=== PATIENT | female | born 1985 | race Caucasian/White ===

== ENCOUNTER 2020-06-21 03:50 | Inpatient (IN) | payer OTHER ==
[2020-06-21] MEDS ORDERED: Butorphanol 1 MG/ML SDV IVPUSH PRN (19:13)
[2020-06-21] MEDS ORDERED: Sodium Chloride 0.9% 2.5 ML Syringe FLUSH PRN (19:13)
[2020-06-21] MEDS ORDERED: Carboprost Tromethamine 250 MCG/1 ML Amp IM PRN (19:13)
[2020-06-21] MEDS ORDERED: Nalbuphine 10 MG/1 ML Vial IVPUSH PRN (19:13)
[2020-06-21] MEDS ORDERED: Water For Irrigation,Sterile 1,000 ML Container IRR PRN (19:13)
[2020-06-21] MEDS ORDERED: Methylergonovine 0.2 MG/1 ML Amp IM PRN (19:13)
[2020-06-21] MEDS ORDERED: Tranexamic Acid 1,000 MG in Sodium Chloride 0.9% 100 ML IV PRN (19:13)
[2020-06-21] MEDS ORDERED: ceFAZolin 2 GM in Premix Bag 1 BAG IV ONE (19:13)
[2020-06-21] MEDS ORDERED: Misoprostol 200 MCG Tab PO PRN (19:13)
[2020-06-21] MEDS ORDERED: Terbutaline 1 MG/ML SDV SUBCUT PRN (19:13)
[2020-06-21] MEDS ORDERED: Misoprostol 25 MCG (1/4 of 100 MCG) Tab VAG PRN ×2 (19:13)
[2020-06-21] MEDS ORDERED: Lidocaine 1% 50 ML MDV INJECT PRN (19:13)
[2020-06-21] MEDS ORDERED: Sodium Chloride 0.9% 10 ML SDV IV PRN (19:13)
[2020-06-21] MEDS ORDERED: Sodium Chloride 0.9% 10 ML Syringe FLUSH PRN (19:13)
[2020-06-21] MEDS ORDERED: Lactated Ringers 1,000 ML IV SCH (19:15)
[2020-06-21] MEDS ORDERED: Oxytocin/0.9 % Sodium Chloride 30 UNIT/500 ML BAG IV SCH ×2 (19:15)
[2020-06-22] MEDS ORDERED: Ropivacaine HCl/PF 100 ML ONE (03:30)
[2020-06-22] MEDS ORDERED: fentaNYL 100 MCG/2 ML SDV ONE ×2 (03:30→03:58)
[2020-06-22] MEDS ORDERED: ceFAZolin 1 GM in Premix Bag 1 BAG IV SCH (03:30)
[2020-06-22] MEDS ORDERED: Lidocaine 2% with EPINEPHrine 1:200,000 20 ML SDV ONE (03:52)
[2020-06-22] MEDS ORDERED: Morphine 4 MG/ML Syringe ONE (04:18)
--- NOTE | 2020-06-22 04:20 | PCM.PREANE ---
Preanesthetic Assessment - Anesthesia/Transfusion/Family Hx Anesthesia History: Prior Anesthesia Without Reaction Family History of Anesthesia Reaction: No - Physical Assessment NPO Status Date: 06/22/20 NPO Status Time: 00:05 Height: 1.68 m Weight: 117.48 kg ASA Class: 2 - Lab Values: Laboratory Last Values WBC 14.54 K/uL (4.0-11.0) H 06/21/20 19:25 RBC 4.34 M/uL (4.30-5.90) 06/21/20 19:25 Hgb 12.2 g/dL (12.0-16.0) 06/21/20 19:25 Hct 36.8 % (36.0-46.0) 06/21/20: MCV 84.8 fL (80.0-98.0) 06/21/20 19: MCH 28.1 pg (27.0-32.0) 06/21/20 19: MCHC 33.2 g/dL (31.0-37.0) 06/21/20 19:25 RDW Std Deviation 45.0 fl (28.0-62.0) 06/21/20 19:25 RDW Coeff of Juani 14 % (11.0-15.0) 06/21/20 19:25 Plt Count 325 K/uL (150-400) 06/21/20 19:25 MPV 10.50 fL (7.40-12.00) 06/21/20 19:25 Nucleated RBC % 0.0 /100WBC 06/21/20 19:25 Nucleated RBCs # 0 K/uL 06/21/20 19:25 Blood Type A POSITIVE 06/21/20 19:25 Antibody Screen NEGATIVE 06/21/20 19:25 - Allergies Allergies/Adverse Reactions: Allergies Allergy/AdvReac Type Severity Reaction Status Date / Time amoxicillin Allergy Rash Verified 11/20/14 08:15 nickel Allergy Redness Verified 06/02/16 08:23 [place] [employer] Allergy Anaphylactic Uncoded 11/20/14 08:16 Shock - Acknowledgements Anesthesia Type Planned: Epidural Pt an Appropriate Candidate for the Planned Anesthesia: Yes Alternatives and Risks of Anesthesia Discussed w Pt/Guardian: Yes Pt/Guardian Understands and Agrees with Anesthesia Plan: Yes PreAnesthesia Questionnaire - Past Health History Medical/Surgical History: Denies Medical/Surgical History HEENT History: Reports: Other (See Below) Other HEENT History: glasses and contacts [employer] INS[employer]OR History: Reports: Psychiatric History: Reports: ADD - Infectious Disease History Infectious Disease History: Reports: Chicken Pox - HOME MEDS Home Medications: Home Meds Cetirizine [ZyrTEC] 10 mg PO ASDIRECTED 06/02/16 [History] Vit Calc,Iron,Folic [ Vitamins] 1 each PO 06/02/16 [History] - CURRENT (IN HOUSE) MEDS Current Meds: Current Medications Butorphanol Tartrate (Stadol) 1 mg IVPUSH Q1H PRN PRN Reason: Pain Last Admin: 06/22/20 01:30 Dose: 1 mg Documented by: Carboprost Tromethamine (Hemabate Ds) 250 mcg IM ASDIRECTED PRN PRN Reason: Post Hemorrhage Oxytocin/Sodium Chloride (Oxytocin 30 Unit/500 Ml-Ns) 30 unit in 500 mls @ 999 mls/hr IV TITRATE MARK Last Admin: 06/22/20 03:58 Dose: 999 mls/hr Documented by: Tranexamic Acid 1,000 mg/ (Sodium Chloride) 110 mls @ 660 mls/hr IV ONETIME PRN PRN Reason: Bleeding Oxytocin/Sodium Chloride (Oxytocin 30 Unit/500 Ml-Ns) 30 unit in 500 mls @ 2 mls/hr IV TITRATE MARK; Protocol Lactated Ringer's (Ringers, Lactated) 1,000 mls @ 150 mls/hr IV ASDIRECTED MARK Last Admin: 06/21/20 19:46 Dose: 150 mls/hr Documented by: Cefazolin Sodium/Dextrose 1 gm (/ Premix) 50 mls @ 100 mls/hr IV Q8H MARK Lidocaine HCl (Xylocaine 1%) 50 ml INJECT ONETIME PRN PRN Reason: Laceration repair Methylergonovine Maleate (Methergine) 0.2 mg IM ASDIRECTED PRN PRN Reason: Post Hemorrhage Misoprostol (Cytotec) 200 mcg PO ONETIME PRN PRN Reason: Post Hemorrhage Misoprostol (Cytotec) 25 mcg VAG ONETIME PRN PRN Reason: Cervical Ripening Last Admin: 06/21/20 20:38 Dose: 25 mcg Documented by: Misoprostol (Cytotec) 25 mcg VAG Q4H PRN PRN Reason: Cervical Ripening Last Admin: 06/22/20 00:29 Dose: 25 mcg Documented by: Nalbuphine HCl (Nubain) 10 mg IVPUSH Q1H PRN PRN Reason: Pain (severe 7-10) Sodium Chloride (Saline Flush) 10 ml FLUSH ASDIRECTED PRN PRN Reason: Keep Vein Open Sodium Chloride (Saline Flush) 2.5 ml FLUSH ASDIRECTED PRN PRN Reason: Keep Vein Open Sodium Chloride (Normal Saline) 10 ml IV ASDIRECTED PRN PRN Reason: IV Use Sterile Water (Sterile Water For Irrigation) 1,000 ml IRR ASDIRECTED PRN PRN Reason: delivery Terbutaline Sulfate (Brethine) 0.25 mg SUBCUT ASDIRECTED PRN PRN Reason: Tacysystole Discontinued Medications Fentanyl (Sublimaze) Confirm Administered Dose 100 mcg .ROUTE .STK-MED ONE Stop: 06/22/20 03:31 Fentanyl (Sublimaze) Confirm Administered Dose 100 mcg .ROUTE .STK-MED ONE Stop: 06/22/20 03:59 Cefazolin Sodium/Dextrose 2 gm (/ Premix) 50 mls @ 100 mls/hr IV ONETIME ONE Stop: 06/21/20 19:42 Last Admin: 06/21/20 19:48 Dose: 100 mls/hr Documented by: Ropivacaine (Naropin 0.2%) Confirm Administered Dose 100 mls @ as directed .ROUTE .STK-MED ONE Stop: 06/22/20 03:31 Lidocaine/Epinephrine (Xylocaine-Mpf 2%-Epi 1:200,000) Confirm Administered Dose 20 ml .ROUTE .STK-MED ONE Stop: 06/22/20 03:53
--- NOTE | 2020-06-22 04:24 | PCM.PRNOTE ---
- Free Text/Narrative Note: Anes Note PAtietn requests epidural for L&D. Sitting position, level L3-L4 midline approach. Sterile technique. Chloraprep scrub to lumbar area. Sterile fenestrated drape applied. Epidural space easily achieved using HERMINIA technique. HERMINIA at 4 cm. Cath threaded 6 cm with ease. Cath secured at 10 cm at skin using sterile clear adhesive dressing. Test 0347 3 cc 1.5% lido with epi negative. 0350 Load 10 cc 0.2% ropivicaine with 1 mcg cc fentanyl in slow divided doses. 0354 Pump started with 90 cc same solution at 8 cc hr wtih 6 cc q 20 min prn bolus. 0400 Patient feels need to push. A sitting dose of 6 cc 2% lido with epi plus 100 mcg fentanyl was administered. Adri well. Time with patient [id number] Dhaval Knight CRNA
[2020-06-22] MEDS ORDERED: Acetaminophen 500 MG Tab PO PRN (04:53)
[2020-06-22] MEDS ORDERED: Lanolin 100% Cream 7 GM Tube TOP PRN (04:53)
[2020-06-22] MEDS ORDERED: Witch Hazel Medicated Pads 40/Jar TOP PRN (04:53)
[2020-06-22] MEDS ORDERED: Docusate Sodium 100 MG Cap PO PRN (04:53)
[2020-06-22] MEDS ORDERED: Bisacodyl 10 MG Supp RECTAL PRN (04:53)
[2020-06-22] MEDS ORDERED: oxyCODONE 5 MG Tab PO PRN (04:53)
[2020-06-22] MEDS ORDERED: Ibuprofen 400 MG Tab PO PRN (04:53)
--- NOTE | 2020-06-22 04:58 | PCM.DEL ---
L & D Note - General Info Date of Service: 06/22/20 Mother's Due Date: 06/25/20 - Delivery Note Cervical Ripening Method: Misoprostil Delivery Outcome: Livebirth Infant Delivery Method: Spontaneous Vaginal Delivery-Single Presentation: Vertex Anesthesia Type: Epidural Anesthetic: Lidocaine (Xylocaine) 1% Plain Local Anesthetic Volume: 2cc Episiotomy Type: None Laceration: 2nd Degree Suture type: Other (monocryl 2.0) Suture size: 2-0 Placenta: Intact Cord: 3 Vessels Estimated Blood Loss: 300 Resuscitation Needed: No Score 1 min: 8 Score 5 min: 9 Delivery Comments (Free Text/Narrative):: Live Male delivered at 358am , 8 /9 weight 3620g - General Info Date of Service: 06/22/20 - Patient Data Weight - Most Recent: 117.48 kg Lab Results Last 24 Hours: Laboratory Results - last 24 hr 06/21/20 06/21/20 Range/Units 19:25 19:25 WBC 14.54 H (4.0-11.0) K/uL RBC 4.34 (4.30-5.90) M/uL Hgb 12.2 (12.0-16.0) g/dL Hct 36.8 (36.0-46.0) % MCV 84.8 (80.0-98.0) fL MCH 28.1 (27.0-32.0) pg MCHC 33.2 (31.0-37.0) g/dL RDW Std Deviation 45.0 (28.0-62.0) fl RDW Coeff of Juani 14 (11.0-15.0) % Plt Count 325 (150-400) K/uL MPV 10.50 (7.40-12.00) fL Nucleated RBC % 0.0 /100WBC Nucleated RBCs # 0 K/uL Blood Type A POSITIVE Antibody Screen NEGATIVE Med Orders - Current: Current Medications Butorphanol Tartrate (Stadol) 1 mg IVPUSH Q1H PRN PRN Reason: Pain Last Admin: 06/22/20 01:30 Dose: 1 mg Documented by: Carboprost Tromethamine (Hemabate Ds) 250 mcg IM ASDIRECTED PRN PRN Reason: Post Hemorrhage Last Admin: 06/22/20 04:32 Dose: 250 mcg Documented by: Oxytocin/Sodium Chloride (Oxytocin 30 Unit/500 Ml-Ns) 30 unit in 500 mls @ 999 mls/hr IV TITRATE MARK Last Admin: 06/22/20 03:58 Dose: 999 mls/hr Documented by: Tranexamic Acid 1,000 mg/ (Sodium Chloride) 110 mls @ 660 mls/hr IV ONETIME PRN PRN Reason: Bleeding Oxytocin/Sodium Chloride (Oxytocin 30 Unit/500 Ml-Ns) 30 unit in 500 mls @ 2 mls/hr IV TITRATE MARK; Protocol Lactated Ringer's (Ringers, Lactated) 1,000 mls @ 150 mls/hr IV ASDIRECTED MARK Last Admin: 06/21/20 19:46 Dose: 150 mls/hr Documented by: Cefazolin Sodium/Dextrose 1 gm (/ Premix) 50 mls @ 100 mls/hr IV Q8H MARK Lidocaine HCl (Xylocaine 1%) 50 ml INJECT ONETIME PRN PRN Reason: Laceration repair Methylergonovine Maleate (Methergine) 0.2 mg IM ASDIRECTED PRN PRN Reason: Post Hemorrhage Misoprostol (Cytotec) 200 mcg PO ONETIME PRN PRN Reason: Post Hemorrhage Nalbuphine HCl (Nubain) 10 mg IVPUSH Q1H PRN PRN Reason: Pain (severe 7-10) Sodium Chloride (Saline Flush) 10 ml FLUSH ASDIRECTED PRN PRN Reason: Keep Vein Open Sodium Chloride (Saline Flush) 2.5 ml FLUSH ASDIRECTED PRN PRN Reason: Keep Vein Open Sodium Chloride (Normal Saline) 10 ml IV ASDIRECTED PRN PRN Reason: IV Use Sterile Water (Sterile Water For Irrigation) 1,000 ml IRR ASDIRECTED PRN PRN Reason: delivery Terbutaline Sulfate (Brethine) 0.25 mg SUBCUT ASDIRECTED PRN PRN Reason: Tacysystole Discontinued Medications Fentanyl (Sublimaze) Confirm Administered Dose 100 mcg .ROUTE .STK-MED ONE Stop: 06/22/20 03:31 Fentanyl (Sublimaze) Confirm Administered Dose 100 mcg .ROUTE .STK-MED ONE Stop: 06/22/20 03:59 Cefazolin Sodium/Dextrose 2 gm (/ Premix) 50 mls @ 100 mls/hr IV ONETIME ONE Stop: 06/21/20 19:42 Last Admin: 06/21/20 19:48 Dose: 100 mls/hr Documented by: Ropivacaine (Naropin 0.2%) Confirm Administered Dose 100 mls @ as directed .ROUTE .STK-MED ONE Stop: 06/22/20 03:31 Lidocaine/Epinephrine (Xylocaine-Mpf 2%-Epi 1:200,000) Confirm Administered Dose 20 ml .ROUTE .STK-MED ONE Stop: 06/22/20 03:53 Misoprostol (Cytotec) 25 mcg VAG ONETIME PRN PRN Reason: Cervical Ripening Last Admin: 06/21/20 20:38 Dose: 25 mcg Documented by: Misoprostol (Cytotec) 25 mcg VAG Q4H PRN PRN Reason: Cervical Ripening Last Admin: 06/22/20 00:29 Dose: 25 mcg Documented by: Morphine Sulfate (Morphine) Confirm Administered Dose 4 mg .ROUTE .STK-MED ONE Stop: 06/22/20 04:19 Last Admin: 06/22/20 04:21 Dose: 4 mg Documented by: - Problem List & Annotations (1) Vaginal delivery SNOMED Code(s): 346674509 Code(s): O80 - ENCOUNTER FOR FULL-TERM UNCOMPLICATED DELIVERY Status: Acute Current Visit: No - Problem List Review Problem List Initiated/Reviewed/Updated: Yes - My Orders Last 24 Hours: My Active Orders 06/22/20 04:53 Patient Status [ADT] Routine May Shower [RC] ASDIRECTED Up ad Violet [RC] ASDIRECTED Vital Signs [RC] PER UNIT ROUTINE Acetaminophen [Tylenol Extra Strength] 1,000 mg PO Q4H PRN Acetaminophen [Tylenol Extra Strength] 500 mg PO Q4H PRN Benzocaine/Menthol [Dermoplast Pain Relief 20%-0.5% [place]] 78 gm TOP ASDIRECTED PRN Docusate Sodium [Colace] 100 mg PO BID PRN Ibuprofen [Motrin] 400 mg PO Q4H PRN Ibuprofen [Motrin] 800 mg PO Q6H PRN Lanolin [Lansinoh HPA] See Dose Instructions TOP ASDIRECTED PRN bisacodyL [Dulcolax] 10 mg RECTAL ONETIME PRN oxyCODONE 5 mg PO Q2H PRN witch Winsome [Tucks] 1 pad TOP ASDIRECTED PRN Assess Lochia [WOMSER] Per Unit Routine Assess Uterine Involution [WOMSER] Per Unit Routine Peripheral IV Discontinue [OM.PC] Routine Resuscitation Status Routine 06/23/20 05:11 HEMOGLOBIN/HEMATOCRIT,HH [HEME] Timed - Assessment Assessment:: 35yo P2 s/p , GBS positive recieved ancef X 1 dose
[2020-06-22] MEDS: Acetaminophen 500 MG Tab PO PRN ×2 (05:36→18:46)
[2020-06-22] MEDS: Ibuprofen 800 MG Tab PO PRN ×3 (05:37→23:11)
[2020-06-22] MEDS: Benzocaine/Menthol 20%-0.5% Spray 78 GM Cannister TOP PRN (05:40)
--- NOTE | 2020-06-22 09:42 | OR ---
SURGEON: OSMIN KOTHARI DATE OF PROCEDURE: 06/22/2020 PREOPERATIVE DIAGNOSIS: A 35-year-old G2, P1-0-0-1 at 39 weeks and 4 days, admitted for induction of labor. POSTOPERATIVE DIAGNOSES: A 35-year-old G2, P1-0-0-1 at 39 weeks and 4 days, admitted for induction of labor. PROCEDURES: 1. Normal spontaneous vaginal delivery. 2. Repair of second-degree laceration. ANESTHESIA: Epidural and local. EBL: 300. IV FLUIDS: Pitocin running. COMPLICATIONS: None. NOTES AND FINDINGS: A live male delivered at 3:58 a.m. score was 8 and 9, weight is 3620 g. Three-vessel cord noted. BRIEF HISTORY: She is 35-year-old G2, P1-0-0-1 at 39 weeks and 4 days, low risk patient, who came in for induction of labor. She received Cytotec, then she had a rapid labor call. She ruptured on her own. When she became fully dilated, she was encouraged to push. The patient delivered before I got into the room. was found on maternal abdomen. Then, cord was clamped and placenta was delivered via controlled cord traction. Perineum was inspected, noted to have a second-degree laceration. 1% lidocaine was infiltrated and was sutured in a continuous fashion, interlocking, and the perineum was inspected. Perineum noted to be hemostatic. All instrument and pad counts were correct x2. Cord blood gases were obtained and cord blood was obtained. All instrument and pad counts were correct x2. PEDRITO MOORE /[id number] DANIEL
--- NOTE | 2020-06-22 13:02 | PCM48HPAN ---
Post Anesthesia Note - EVALUATION WITHIN 48HRS OF ANESTHETIC Vital Signs in Normal Range: Yes Patient Participated in Evaluation: Yes Respiratory Function Stable: Yes Airway Patent: Yes Cardiovascular Function Stable: Yes Hydration Status Stable: Yes Pain Control Satisfactory: Yes Nausea and Vomiting Control Satisfactory: Yes Mental Status Recovered: Yes Vital Signs: Last Vital Signs Temp 35.9 C L 06/22/20 07:50 Pulse Resp 20 06/22/20 07:50 BP 120/70 06/22/20 07:50 Pulse Ox - COMMENTS/OBSERVATIONS Free Text/Narrative:: Denies any problems or discomforts
[2020-06-23] MEDS: Acetaminophen 500 MG Tab PO PRN (05:27)
[2020-06-23 08:23] VITALS: BP 129/78; PULSE 99
--- NOTE | 2020-06-23 09:54 | PCM.PNPP ---
- General Info Date of Service: 06/23/20 Functional Status: Reports: Pain Controlled, Tolerating Diet, Ambulating, Urinating - Review of Systems General: Reports: Fatigue. Denies: Fever, Weakness Pulmonary: Denies: Shortness of Breath Cardiovascular: Denies: Chest Pain, Palpitations, Lightheadedness Gastrointestinal: Denies: Abdominal Pain, Nausea, Vomiting Genitourinary: Denies: Flank Pain Skin: Reports: No Symptoms Neurological: Reports: No Symptoms Psychiatric: Reports: No Symptoms - General Info Date of Service: 06/23/20 - Patient Data Vital Signs - Most Recent: Last Vital Signs Temp 36.5 C 06/23/20 08:22 Pulse 99 06/23/20 08:22 Resp 19 06/23/20 08:22 BP 129/78 06/23/20 08:22 Pulse Ox 95 06/23/20 08:22 Weight - Most Recent: 117.48 kg Lab Results - Last 24 Hours: Laboratory Results - last 24 hr 06/23/20 Range/Units 04:45 Hgb 12.0 (12.0-16.0) g/dL Hct 36.6 (36.0-46.0) % Med Orders - Current: Current Medications Acetaminophen (Tylenol Extra Strength) 500 mg PO Q4H PRN PRN Reason: Pain Acetaminophen (Tylenol Extra Strength) 1,000 mg PO Q4H PRN PRN Reason: Pain Last Admin: 06/23/20 05:27 Dose: 1,000 mg Documented by: Benzocaine/Menthol (Dermoplast Pain Relief 20%-0.5% [place]) 78 gm TOP ASDIRECTED PRN PRN Reason: Perineal Comfort Measure Last Admin: 06/22/20 05:40 Dose: 1 canister Documented by: Bisacodyl (Dulcolax) 10 mg RECTAL ONETIME PRN PRN Reason: Constipation Docusate Sodium (Colace) 100 mg PO BID PRN PRN Reason: Constipation Last Admin: 06/22/20 18:46 Dose: 100 mg Documented by: Emollient Ointment (Lansinoh Hpa) 0 gm TOP ASDIRECTED PRN PRN Reason: Sore Nipples Last Admin: 06/22/20 05:39 Dose: 7 gm Documented by: Ibuprofen (Motrin) 400 mg PO Q4H PRN PRN Reason: Pain Ibuprofen (Motrin) 800 mg PO Q6H PRN PRN Reason: Pain Last Admin: 06/22/20 23:11 Dose: 800 mg Documented by: Oxycodone HCl (Oxycodone) 5 mg PO Q2H PRN PRN Reason: Pain Sodium Chloride (Saline Flush) 10 ml FLUSH ASDIRECTED PRN PRN Reason: Keep Vein Open Sodium Chloride (Saline Flush) 2.5 ml FLUSH ASDIRECTED PRN PRN Reason: Keep Vein Open Witch Rhea (Tucks) 1 pad TOP ASDIRECTED PRN PRN Reason: comfort care Discontinued Medications Butorphanol Tartrate (Stadol) 1 mg IVPUSH Q1H PRN PRN Reason: Pain Last Admin: 06/22/20 01:30 Dose: 1 mg Documented by: Carboprost Tromethamine (Hemabate Ds) 250 mcg IM ASDIRECTED PRN PRN Reason: Post Hemorrhage Last Admin: 06/22/20 04:32 Dose: 250 mcg Documented by: Fentanyl (Sublimaze) Confirm Administered Dose 100 mcg .ROUTE .STK-MED ONE Stop: 06/22/20 03:31 Last Admin: 06/22/20 21:17 Dose: Not Given Documented by: Fentanyl (Sublimaze) Confirm Administered Dose 100 mcg .ROUTE .STK-MED ONE Stop: 06/22/20 03:59 Last Admin: 06/22/20 21:17 Dose: Not Given Documented by: Oxytocin/Sodium Chloride (Oxytocin 30 Unit/500 Ml-Ns) 30 unit in 500 mls @ 999 mls/hr IV TITRATE MARK Last Admin: 06/22/20 03:58 Dose: 999 mls/hr Documented by: Tranexamic Acid 1,000 mg/ (Sodium Chloride) 110 mls @ 660 mls/hr IV ONETIME PRN PRN Reason: Bleeding Oxytocin/Sodium Chloride (Oxytocin 30 Unit/500 Ml-Ns) 30 unit in 500 mls @ 2 mls/hr IV TITRATE MARK; Protocol Cefazolin Sodium/Dextrose 2 gm (/ Premix) 50 mls @ 100 mls/hr IV ONETIME ONE Stop: 06/21/20 19:42 Last Admin: 06/21/20 19:48 Dose: 100 mls/hr Documented by: Lactated Ringer's (Ringers, Lactated) 1,000 mls @ 150 mls/hr IV ASDIRECTED MARK Last Admin: 06/21/20 19:46 Dose: 150 mls/hr Documented by: Cefazolin Sodium/Dextrose 1 gm (/ Premix) 50 mls @ 100 mls/hr IV Q8H MARK Ropivacaine (Naropin 0.2%) Confirm Administered Dose 100 mls @ as directed .ROUTE .STK-MED ONE Stop: 06/22/20 03:31 Last Admin: 06/22/20 21:16 Dose: Not Given Documented by: Lidocaine HCl (Xylocaine 1%) 50 ml INJECT ONETIME PRN PRN Reason: Laceration repair Last Admin: 06/22/20 05:03 Dose: 50 ml Documented by: Lidocaine/Epinephrine (Xylocaine-Mpf 2%-Epi 1:200,000) Confirm Administered Dose 20 ml .ROUTE .STK-MED ONE Stop: 06/22/20 03:53 Last Admin: 06/22/20 21:17 Dose: Not Given Documented by: Methylergonovine Maleate (Methergine) 0.2 mg IM ASDIRECTED PRN PRN Reason: Post Hemorrhage Misoprostol (Cytotec) 200 mcg PO ONETIME PRN PRN Reason: Post Hemorrhage Misoprostol (Cytotec) 25 mcg VAG ONETIME PRN PRN Reason: Cervical Ripening Last Admin: 06/21/20 20:38 Dose: 25 mcg Documented by: Misoprostol (Cytotec) 25 mcg VAG Q4H PRN PRN Reason: Cervical Ripening Last Admin: 06/22/20 00:29 Dose: 25 mcg Documented by: Morphine Sulfate (Morphine) Confirm Administered Dose 4 mg .ROUTE .STK-MED ONE Stop: 06/22/20 04:19 Last Admin: 06/22/20 04:21 Dose: 4 mg Documented by: Nalbuphine HCl (Nubain) 10 mg IVPUSH Q1H PRN PRN Reason: Pain (severe 7-10) Sodium Chloride (Normal Saline) 10 ml IV ASDIRECTED PRN PRN Reason: IV Use Sterile Water (Sterile Water For Irrigation) 1,000 ml IRR ASDIRECTED PRN PRN Reason: delivery Terbutaline Sulfate (Brethine) 0.25 mg SUBCUT ASDIRECTED PRN PRN Reason: Tacysystole - Infant Interaction Support Person: - Recovery Exam Fundal Tone: Firm Fundal Level: At Umbilicus Fundal Placement: Midline Lochia Amount: Scant Lochia Color: Rubra/Red Perineum Description: Intact, Minimal Bruising/Swelling, Other (see below) Other Perinuem Description: 2nd degree laceration Episiotomy/Laceration: Approximated Bladder Status: Voiding Urinary Elimination: Voided - Exam General: Alert, Oriented Lungs: Normal Respiratory Effort Cardiovascular: Regular Rate, Regular Rhythm GI/Abdominal Exam: Normal Bowel Sounds, Soft Extremities: Pedal Edema (trace). No: Maggie's Sign Skin: Warm, Dry, Intact Neurological: No New Focal Deficit Psy/Mental Status: Alert, Normal Affect, Normal Mood - Problem List & Annotations (1) Vaginal delivery SNOMED Code(s): 590191377 Code(s): O80 - ENCOUNTER FOR FULL-TERM UNCOMPLICATED DELIVERY Status: Acute Current Visit: No - Problem List Review Problem List Initiated/Reviewed/Updated: Yes - Assessment Assessment:: 35yo P2 PPD 1 s/p - Plan Plan:: Doing well overall, VS and labs are reassuring. going better with better latch last night. Continue cares. Most likely will want to watch until tomorrow from pediatric standpoint. Discharge instructions have been reviewed in case baby able to go home this evening.
[2020-06-23] MEDS: Ibuprofen 800 MG Tab PO PRN (14:16)
[2020-06-23] MEDS: Benzocaine/Menthol 20%-0.5% Spray 78 GM Cannister TOP PRN (14:17)
== END 2020-06-23 15:05 | disposition home or self-care (01) | DRG 807 ==
LOC: MW.OB 03:50 → OBSVTOIN 06-22 03:50 → MW.OB 06-22 07:20
PROVIDERS: ADMIT Obstetrics & Gynecology; ATTEND Obstetrics & Gynecology
PROC: 10E0XZZ Delivery of Products of Conception, External Approach (ICD-10-PCS; principal; 2020-06-22)
PROC: 0KQM0ZZ Repair Perineum Muscle, Open Approach (ICD-10-PCS; 2020-06-22)
PROC: 3E0P7VZ Introduction of Hormone into Female Reproductive, Via Natural or Artificial Opening (ICD-10-PCS; 2020-06-22)
PROC: 3E0R3BZ Introduction of Anesthetic Agent into Spinal Canal, Percutaneous Approach (ICD-10-PCS; 2020-06-22)
DX: O99.824 Streptococcus B carrier state complicating childbirth (principal); Z37.0 Single live birth; Z3A.39 39 weeks gestation of pregnancy; O70.1 Second degree perineal laceration during delivery
CPT/HCPCS: 36415; 59025; 59409; 85014; 85018; 85027; 86592; 86850; 86900; 86901; A9270-GY; J0595; J0690; J2001; J2270; J2590; J7120

== ENCOUNTER 2021-12-22 09:48 | Inpatient (IN) | payer OTHER ==
[2021-12-22] MEDS ORDERED: Ondansetron 4 MG/2 ML SDV IVPUSH PRN (10:01)
[2021-12-22] MEDS ORDERED: Sodium Chloride 0.9% 10 ML Syringe FLUSH PRN (10:01)
[2021-12-22] MEDS ORDERED: Misoprostol 200 MCG Tab PO PRN (10:01)
[2021-12-22] MEDS ORDERED: Water For Irrigation,Sterile 1,000 ML Container IRR PRN (10:01)
[2021-12-22] MEDS ORDERED: ceFAZolin 2 GM in Premix Bag 1 BAG IV ONE (10:01)
[2021-12-22] MEDS ORDERED: Tranexamic Acid 1,000 MG in Sodium Chloride 0.9% 100 ML IV PRN (10:01)
[2021-12-22] MEDS ORDERED: Methylergonovine 0.2 MG/1 ML Amp IM PRN (10:01)
[2021-12-22] MEDS ORDERED: Lidocaine 1% 50 ML MDV INJECT PRN (10:01)
[2021-12-22] MEDS ORDERED: Carboprost Tromethamine 250 MCG/1 ML Amp IM PRN (10:01)
[2021-12-22] MEDS ORDERED: Sodium Chloride 0.9% 2.5 ML Syringe FLUSH PRN (10:01)
[2021-12-22] MEDS ORDERED: Butorphanol 1 MG/ML SDV IVPUSH PRN (10:01)
[2021-12-22] MEDS ORDERED: Sodium Chloride 0.9% 20 ML SDV IV PRN (10:01)
[2021-12-22] MEDS ORDERED: Oxytocin/0.9 % Sodium Chloride 30 UNIT/500 ML BAG IV SCH (10:15)
[2021-12-22] MEDS ORDERED: ePHEDrine 50 MG/ML SDV IVPUSH PRN (11:34)
[2021-12-22] MEDS ORDERED: Ropivacaine HCl/PF 400 MG in Premix Bag 1 BAG EPIDUR SCH (11:45)
[2021-12-22] MEDS: Lactated Ringers 1,000 ML IV SCH ×2 (11:50→11:51)
[2021-12-22] MEDS ORDERED: Oxytocin 10 Units/1 ML SDV ONE (14:52)
[2021-12-22] MEDS ORDERED: Oxytocin 10 Units/1 ML SDV IM ONE (15:01)
[2021-12-22] MEDS ORDERED: Lanolin 100% Cream 7 GM Tube TOP PRN (15:10)
[2021-12-22] MEDS ORDERED: Ibuprofen 400 MG Tab PO PRN (15:10)
[2021-12-22] MEDS ORDERED: oxyCODONE 5 MG Tab PO PRN (15:10)
[2021-12-22] MEDS ORDERED: Bisacodyl 10 MG Supp RECTAL PRN (15:10)
[2021-12-22] MEDS ORDERED: Acetaminophen 500 MG Tab PO PRN (15:10)
[2021-12-22] MEDS ORDERED: Benzocaine/Menthol 20%-0.5% Spray 78 GM Cannister TOP PRN (15:10)
[2021-12-22] MEDS ORDERED: Docusate Sodium 100 MG Cap PO PRN (15:10)
[2021-12-22] MEDS ORDERED: Witch Hazel Medicated Pads 40/Jar TOP PRN (15:10)
[2021-12-22] MEDS: Ibuprofen 800 MG Tab PO PRN ×2 (16:45→23:45)
[2021-12-22] MEDS: Acetaminophen 500 MG Tab PO PRN (20:52)
[2021-12-23] MEDS: Acetaminophen 500 MG Tab PO PRN (02:39)
[2021-12-23] MEDS: Ibuprofen 800 MG Tab PO PRN ×2 (11:54→19:52)
[2021-12-24] MEDS: Ibuprofen 800 MG Tab PO PRN (04:43)
[2021-12-24 08:30] VITALS: BP 138/82; PULSE 86
== END 2021-12-24 11:25 | disposition home or self-care (01) | DRG 807 ==
LOC: MW.OB 09:48 → OBSVTOIN 14:49 → MW.OB 14:49
PROVIDERS: ADMIT Obstetrics & Gynecology; ATTEND Obstetrics & Gynecology
PROC: 10E0XZZ Delivery of Products of Conception, External Approach (ICD-10-PCS; principal; 2021-12-22)
PROC: 0KQM0ZZ Repair Perineum Muscle, Open Approach (ICD-10-PCS; 2021-12-22)
PROC: 3E0R3BZ Introduction of Anesthetic Agent into Spinal Canal, Percutaneous Approach (ICD-10-PCS; 2021-12-22)
PROC: 00HU33Z Insertion of Infusion Device into Spinal Canal, Percutaneous Approach (ICD-10-PCS; 2021-12-22)
DX: O99.824 Streptococcus B carrier state complicating childbirth (principal); Z37.0 Single live birth; Z3A.38 38 weeks gestation of pregnancy; O70.1 Second degree perineal laceration during delivery; Z20.822 Contact with and (suspected) exposure to COVID-19
CPT/HCPCS: 36415; 51702; 59025; 59409; 82803; 85014; 85018; 85027; 86592; 86850; 86900; 86901; A9270-GY; J0595; J0690; J2590; J2795; J7120; U0002